=== PATIENT | male | born 1975 | race Caucasian/White ===

== ENCOUNTER 2019-01-30 19:23 | Emergency (ER) | payer MEDICAID ==
[~2019-01-30] VITALS: Ht 182.9 cm; Wt 77.0 kg
[2019-01-30] MEDS ORDERED: DEXAMETHASONE 4MG TABLET PO NR (21:30)
[2019-01-30] MEDS ORDERED: DIPHENHYDRAMINE HCL/ZINC ACET 28 GM CREAM TOP NR (21:30)
[2019-01-30] MEDS ORDERED: DIPHENHYDRAMINE 25MG CAPSULE PO NR (21:30)
[2019-01-30 21:55] VITALS: BP 115/75
== END 2019-01-30 22:21 | disposition home or self-care (01) ==
LOC: ER 19:23
DX: L25.2 Unspecified contact dermatitis due to dyes (principal); L50.9 Urticaria, unspecified; F17.200 Nicotine dependence, unspecified, uncomplicated
CPT/HCPCS: 99284; J8540; Q0163